=== PATIENT | female | born 1955 | race African-American/Black ===

== ENCOUNTER 2019-11-15 13:09 | Observation (INO) ==
[2019-11-15 17:47] LABS: Basophils # 0.1 10*3/uL (0.0-0.2); Basophils % 0.6 % (0.0-0.8); Eosinophils # 0.2 10*3/uL (0.0-0.87); Eosinophils % 1.8 % (0.00-10.9); Hematocrit 38.1 VOL% (35.7-47.0); Hemoglobin 12.1 GM/DL (12.0-16.0); Immature Granulocytes % 0.1 %; Immature Granulocytes Absolute 0.01 #; Lymphocytes # 4.1 10*3/uL (1.4-4.0); Lymphocytes % 48.1 % (21.3-54.2); Mean Corpuscular HGB Conc 31.8 GM/DL (32-36); Mean Corpuscular Volume 89.4 FL (87-102); Mean Platelet Volume 9.6 FL (9.6-12.0); Monocytes % 8.2 % (1.7-12.7); Neutrophils % 41.2 % (38.7-73.9); Platelet Count 314 T/CUMM (130-400); Red Blood Count 4.26 MC/CUMM (3.8-5.5); Red Cell Distribution Width 13.6 % (9.3-17.3); White Blood Count 8.4 T/CUMM (4-12)
[2019-11-15 18:07] LABS: PT Patient Result 10.8 SECS (9.8-11.9); Partial Thromboplastin Time 28.8 SECS (23.9-33.8)
[2019-11-15 18:10] LABS: Troponin I < 0.015 NG/ML (0.00-0.045)
[2019-11-15 18:13] LABS: Albumin 3.5 G/DL (3.4-5.0); Bilirubin,Total 0.4 MG/DL (0.2-1.0); Calcium 9.6 MG/DL (8.5-10.1); Osmolality,Calculated 277.5 MOS/KG (273-304); Total Protein 8.4 G/DL (6.4-8.3)
[2019-11-15 18:16] LABS: Thyroid Stimulating Hormone 2.71 uIU/ml (0.358-3.74)
[2019-11-15 18:52] LABS: Apearance,Urine CLEAR (Clear); Bilirubin,Urine Negative (Negative); Blood, Urine Negative (Negative); Glucose,Urine (UA) Negative (Negative); Hyaline Casts,Urine 4 /LPF (0-3); Ketones,Urine Negative (Negative); Mucus,Urine Occasional /LPF (Occasional); Nitrite,Urine Negative (Negative); Protein,Urine Negative; RBC,Urine 2 /HPF (0-4); Squamous Epithelial Cell,Urine Occasional /HPF (0-10); Urine Color Yellow (Yellow); Urine Specific Gravity 1.018 (1.001-1.035); Urine Urobilinogen < 2.0 EU/DL (0.2-1.0); WBC,Urine 1 /HPF (0-6)
[2019-11-15 18:58] LABS: Barbiturates Screen,Urine Negative (Negative); Benzodiazepines Screen,Urine Negative (Negative); Cannabinoid Screen,Urine Negative (Negative); Opiate Screen,Urine Negative (Negative); Phencyclidine Screen,Urine Negative (Negative)
[2019-11-15] MEDS ORDERED: DEXTROSE 50% 25 GM/50 ML VIAL IV PRN ×2 (19:27)
[2019-11-15] MEDS ORDERED: GLUCAGON 1 MG VIAL IM PRN (19:27)
[2019-11-15] MEDS ORDERED: ONDANSETRON 4 MG/2 ML VIAL IV PRN (19:27)
[2019-11-15] MEDS ORDERED: ACETAMINOPHEN 325 MG TABLET PO PRN (19:27)
[2019-11-15] MEDS: ASPIRIN EC 325 MG TABLET PO SCH (20:39)
[2019-11-15] MEDS: ENOXAPARIN 40 MG/0.4 ML SYRINGE SUBCUT SCH (21:57)
[2019-11-15] MEDS: ATORVASTATIN 40 MG TABLET PO SCH (21:57)
[2019-11-15] MEDS: INSULIN REGULAR 100 UNIT/ML SUBCUT SCH (21:58)
[2019-11-16 05:37] LABS: Basophils # 0.1 10*3/uL (0.0-0.2); Basophils % 0.8 % (0.0-0.8); Eosinophils # 0.1 10*3/uL (0.0-0.87); Eosinophils % 1.9 % (0.00-10.9); Hematocrit 36.1 VOL% (35.7-47.0); Hemoglobin 11.7 GM/DL (12.0-16.0); Immature Granulocytes % 0.3 %; Immature Granulocytes Absolute 0.02 #; Lymphocytes # 3.2 10*3/uL (1.4-4.0); Mean Corpuscular HGB Conc 32.4 GM/DL (32-36); Mean Corpuscular Volume 88.5 FL (87-102); Mean Platelet Volume 9.8 FL (9.6-12.0); Monocytes % 7.5 % (1.7-12.7); Neutrophils % 38.5 % (38.7-73.9); Platelet Count 284 T/CUMM (130-400); Red Blood Count 4.08 MC/CUMM (3.8-5.5); Red Cell Distribution Width 13.5 % (9.3-17.3); White Blood Count 6.3 T/CUMM (4-12)
[2019-11-16 06:02] LABS: Atypical Lymphocytes Few; Eosinophils 4 % (0-10); Hypochromasia 1+; Lymphocytes 54 % (20-55); Microcytosis Slight; Segmented Neutrophils 40 % (50-85); Total Cells Counted 100
[2019-11-16 06:06] LABS: Calcium 9.2 MG/DL (8.5-10.1); Osmolality,Calculated 277.7 MOS/KG (273-304)
[2019-11-16] MEDS: LEVOTHYROXINE 112 MCG TABLET PO SCH (06:16)
[2019-11-16] MEDS: INSULIN REGULAR 100 UNIT/ML SUBCUT SCH ×4 (07:55→20:49)
[2019-11-16] MEDS: ASPIRIN EC 325 MG TABLET PO SCH (08:59)
[2019-11-16] MEDS: METOPROLOL SUCCINATE XL 25 MG TABLET PO SCH (09:00)
[2019-11-16] MEDS: PANTOPRAZOLE 40 MG TABLET PO SCH (09:00)
[2019-11-16] MEDS: amLODIPine 10 MG TABLET PO SCH (09:00)
[2019-11-16] MEDS: LACTATED RINGERS 1,000 ML IV SCH (14:15)
[2019-11-16 16:56] LABS: Risk Ratio 2.72; VLDL CHOLESTEROL 19.6 MG/DL
[2019-11-16] MEDS: ATORVASTATIN 40 MG TABLET PO SCH (20:48)
[2019-11-16] MEDS: ENOXAPARIN 40 MG/0.4 ML SYRINGE SUBCUT SCH (20:48)
[2019-11-17] MEDS: LACTATED RINGERS 1,000 ML IV SCH (03:40)
[2019-11-17] MEDS: LEVOTHYROXINE 112 MCG TABLET PO SCH (06:09)
[2019-11-17 07:07] LABS: Calcium 9.3 MG/DL (8.5-10.1); Osmolality,Calculated 278.5 MOS/KG (273-304)
[2019-11-17 07:44] VITALS: BP 118/58
[2019-11-17] MEDS: INSULIN REGULAR 100 UNIT/ML SUBCUT SCH (07:44)
[2019-11-17] MEDS: ASPIRIN EC 325 MG TABLET PO SCH (08:43)
[2019-11-17] MEDS: amLODIPine 10 MG TABLET PO SCH (08:43)
[2019-11-17] MEDS: METOPROLOL SUCCINATE XL 25 MG TABLET PO SCH (08:43)
[2019-11-17] MEDS: PANTOPRAZOLE 40 MG TABLET PO SCH (08:43)
== END 2019-11-17 13:50 | disposition home or self-care (01) ==
LOC: N.EDINP 13:09 → N.ED 13:09 → SUATTDRO 18:28 → N.TELEN 20:42
PROVIDERS: ADMIT Internal Medicine; ATTEND Internal Medicine